=== PATIENT | female | born 1965 | race Caucasian/White ===

== ENCOUNTER → 2023-11-09 06:11 | Day surgery (SDC) | payer OTHER, SELFPAY | LOC: GI 06:11 | PROVIDERS: ATTENDING PHYSICIAN Internal Medicine | DX: Z12.11 Encounter for screening for malignant neoplasm of colon (principal); D12.0 Benign neoplasm of cecum; D12.5 Benign neoplasm of sigmoid colon; K63.5 Polyp of colon | CPT/HCPCS: 45385; 45380; 88305 ==